=== PATIENT | male | born 1940 | race Two or more races ===

== ENCOUNTER 2017-06-09 15:02 | Inpatient (IN) | payer MEDICARE, OTHER ==
[~2017-06-09] VITALS: Ht 167.6 cm; Wt 87.6 kg
[~2017-06-09 15:02] MED LIST: ALBU2TAB PO; CARV-39 PO; FEBU40TA PO; METH4TAB6 PO; PRED50TA PO
[2017-06-09] MEDS ORDERED: PIPERACILLIN/TAZO/PMX 3.375GM 50 ML IVPB ONE (15:30)
[2017-06-09] MEDS ORDERED: PHARMACOKINETIC CONSULTATION MC ONE ×2 (15:30→20:00)
[2017-06-09] MEDS ORDERED: SODIUM CHLORIDE 0.9% 1,000ML IVBOLUS ONE (15:30)
[2017-06-09] MEDS ORDERED: VANCOMYCIN PER PHARMACY MC ONE (15:30)
[2017-06-09] MEDS ORDERED: ACETAMINOPHEN 500 MG TABLET PO ONE (15:30)
[2017-06-09] MEDS ORDERED: ACETAMINOPHEN 500 MG TABLET ONE (15:43)
[2017-06-09 15:55] LABS: BASOPHILS # (AUTO) 0.03 x10^3/uL (0-0.1); BASOPHILS % (AUTO) 1 % (0-1); EOSINOPHILS # (AUTO) 0.02 x10^3/uL (0-0.4); EOSINOPHILS % (AUTO) 0 % (1-7); LYMPHOCYTES # (AUTO) 0.44 x10^3/uL (1-3.4); LYMPHOCYTES % (AUTO) 6 % (22-44); MD NO; MEAN CORPUSCULAR HEMOGLOBIN 29.3 pg (27.5-34.5); MEAN CORPUSCULAR HGB CONC 32.5 g/dL (33.2-36.2); MEAN CORPUSCULAR VOLUME 90.2 fL (81-97); MEAN PLATELET VOLUME 7.9 fL (7.4-10.4); MONOCYTES # (AUTO) 0.65 x10^3/uL (0.2-0.8); MONOCYTES % (AUTO) 9 % (2-9); NEUTROPHILS # (AUTO) 5.76 x10^3/uL (1.8-6.8); NEUTROPHILS % (AUTO) 83 % (42-75); PLATELET COUNT 174 x10^3/uL (130-400); RED BLOOD COUNT 3.65 x10^6/uL (4.38-5.82); RED CELL DISTRIBUTION WIDTH 18.4 % (9.4-14.8)
[2017-06-09] MEDS ORDERED: METHYLPRED (15:58)
[2017-06-09] MEDS ORDERED: [UNRECOGNIZED DRUG - OTHER] (15:58)
[2017-06-09] MEDS ORDERED: ALLO300T PO (15:58)
[2017-06-09] MEDS ORDERED: LISI-170 PO (15:58)
[2017-06-09] MEDS ORDERED: ATOR20TA9 PO (15:58)
[2017-06-09] MEDS ORDERED: VANCOMYCIN 1,600 MG in SODIUM CHLORIDE 0.9% 250 ML IV ONE (16:00)
[2017-06-09 16:02] LABS: INTERNATIONAL NORMALIZED RATIO 1.14 (0.93-1.1); PROTHROMBIN TIME 11.8 Seconds (9.6-11.5)
[2017-06-09 16:04] LABS: ALANINE AMINOTRANSFERASE 25 U/L (12-78); ANION GAP 11 mmol/L (5-15); CALCIUM 7.9 mg/dL (8.5-10.1); CHLORIDE 113 mmol/L (98-107); CREATININE 2.54 mg/dL (0.7-1.3)
[2017-06-09 16:06] LABS: ALKALINE PHOSPHATASE 53 U/L (45-117); BILIRUBIN,TOTAL 0.8 mg/dL (0.2-1.0); TOTAL PROTEIN 6.1 g/dL (6.4-8.2)
[2017-06-09 17:32] LABS: MICROSCOPIC INDICATED
[2017-06-09 17:40] LABS: CULTURE INDICATED? NO
[2017-06-09] MEDS ORDERED: BISACODYL 10 MG SUPP PR PRN (18:00)
[2017-06-09] MEDS ORDERED: ONDANSETRON 2MG/ML, 2ML IVPush PRN (18:00)
[2017-06-09] MEDS ORDERED: GUAIFENESIN/DM 200-20MG, 10ML UDC PO PRN (18:00)
[2017-06-09] MEDS ORDERED: PHARMACY MAY ADJ FOR RENAL FX MC PRN (18:00)
[2017-06-09] MEDS ORDERED: ACETAMINOPHEN 325 MG TABLET PO PRN (18:00)
[2017-06-09] MEDS ORDERED: DEXTROSE 5% 1,000 ML IV SCH (18:00)
[2017-06-09] MEDS ORDERED: VANCOMYCIN PER PHARMACY MC PRN (18:00)
[2017-06-09] MEDS: ALBUTEROL/IPRATROPIUM 2.5MG/0.5MG, 3 ML NPPB SCH ×2 (19:30→21:46)
[2017-06-09] MEDS ORDERED: ALBUTEROL/IPRATROPIUM 2.5MG/0.5MG, 3 ML NPPB PRN (19:30)
[2017-06-09] MEDS ORDERED: PHARMACOKINETIC MONITORING MC PRN (20:00)
[2017-06-09 20:01] VITALS: BP 90/49
[2017-06-09] MEDS: methylPREDNISolone SOD SUCC 40 MG/ML IV SCH (20:20)
[2017-06-09] MEDS: FAMOTIDINE 20 MG TABLET PO SCH (20:21)
[2017-06-09] MEDS: HEPARIN 5,000 UNITS/ML, 1ML SQ SCH (20:21)
[2017-06-09] MEDS: ATORVASTATIN 20 MG TABLET PO SCH (20:22)
[2017-06-09] MEDS ORDERED: SODIUM CHLORIDE 0.9% 1,000 ML IV SCH (20:30)
[2017-06-09 20:49] LABS: ALANINE AMINOTRANSFERASE 36 U/L (12-78); ALBUMIN 2.5 g/dL (3.4-5.0); ANION GAP 11 mmol/L (5-15); CALCIUM 6.9 mg/dL (8.5-10.1); CHLORIDE 118 mmol/L (98-107); CREATININE 2.22 mg/dL (0.7-1.3)
[2017-06-09 20:51] LABS: ALKALINE PHOSPHATASE 43 U/L (45-117); BILIRUBIN,TOTAL 0.6 mg/dL (0.2-1.0); TOTAL PROTEIN 5.1 g/dL (6.4-8.2)
[2017-06-09] MEDS ORDERED: PIPERACILLIN/TAZO/PMX 3.375GM 50 ML IV SCH ×2 (21:30)
[2017-06-09] MEDS ORDERED: PIPERACILLIN/TAZO 3.375 GM in DEXTROSE 5% 50 ML IVPB ONE (21:30)
[2017-06-09 21:49] LABS: RAPID INFLUENZA A Negative (Negative); RAPID INFLUENZA B Negative (Negative)
[2017-06-10] MEDS: ALBUTEROL/IPRATROPIUM 2.5MG/0.5MG, 3 ML NPPB SCH ×5 (03:16→19:15)
[2017-06-10] MEDS ORDERED: PIPERACILLIN/TAZO 3.375 GM in DEXTROSE 5% 50 ML IV SCH (03:30)
[2017-06-10] MEDS: HEPARIN 5,000 UNITS/ML, 1ML SQ SCH ×3 (04:11→21:10)
[2017-06-10] MEDS: methylPREDNISolone SOD SUCC 40 MG/ML IV SCH ×3 (04:13→21:10)
[2017-06-10 04:18] VITALS: BP 96/55
[2017-06-10 04:21] LABS: BASOPHILS % (AUTO) 0 % (0-1); EOSINOPHILS % (AUTO) 0 % (1-7); LYMPHOCYTES # (AUTO) 0.33 x10^3/uL (1-3.4); LYMPHOCYTES % (AUTO) 5 % (22-44); MD NO; MEAN CORPUSCULAR HEMOGLOBIN 29.8 pg (27.5-34.5); MEAN CORPUSCULAR HGB CONC 32.6 g/dL (33.2-36.2); MEAN CORPUSCULAR VOLUME 91.3 fL (81-97); MONOCYTES # (AUTO) 0.27 x10^3/uL (0.2-0.8); MONOCYTES % (AUTO) 4 % (2-9); NEUTROPHILS # (AUTO) 6.56 x10^3/uL (1.8-6.8); NEUTROPHILS % (AUTO) 92 % (42-75); PLATELET COUNT 135 x10^3/uL (130-400); RED BLOOD COUNT 3.34 x10^6/uL (4.38-5.82); RED CELL DISTRIBUTION WIDTH 18.6 % (9.4-14.8)
[2017-06-10 04:32] LABS: ALBUMIN 2.5 g/dL (3.4-5.0); ANION GAP 11 mmol/L (5-15); CALCIUM 6.8 mg/dL (8.5-10.1); CHLORIDE 118 mmol/L (98-107)
[2017-06-10 04:35] LABS: ALANINE AMINOTRANSFERASE 41 U/L (12-78); ALKALINE PHOSPHATASE 42 U/L (45-117); BILIRUBIN,TOTAL 0.6 mg/dL (0.2-1.0); CREATININE 2.06 mg/dL (0.7-1.3); TOTAL PROTEIN 5.4 g/dL (6.4-8.2)
[2017-06-10] MEDS ORDERED: SODIUM CHLORIDE 0.45% 1,000 ML IV SCH (07:30)
[2017-06-10] MEDS ORDERED: MAGNESIUM SULFATE PMX 4GM/100M 100 ML IV ONE (07:30)
[2017-06-10] MEDS ORDERED: predniSONE 50MG TABLET PO SCH (08:00)
[2017-06-10] MEDS: DOXYCYCLINE 100MG TABLET PO SCH ×2 (12:14→21:11)
[2017-06-10] MEDS: CEFTRIAXONE PMX 1GM/50ML 50 ML IV SCH (12:19)
[2017-06-10 13:18] VITALS: BP 101/60
[2017-06-10 20:29] VITALS: BP 94/56
[2017-06-10] MEDS: FAMOTIDINE 20 MG TABLET PO SCH (21:11)
[2017-06-10] MEDS: ATORVASTATIN 20 MG TABLET PO SCH (21:11)
[2017-06-11 01:55] VITALS: BP 96/53
[2017-06-11] MEDS: methylPREDNISolone SOD SUCC 40 MG/ML IV SCH (04:38)
[2017-06-11] MEDS: HEPARIN 5,000 UNITS/ML, 1ML SQ SCH (04:39)
[2017-06-11 05:27] LABS: CHLORIDE 119 mmol/L (98-107)
[2017-06-11 05:31] LABS: ANION GAP 8 mmol/L (5-15); CALCIUM 7.2 mg/dL (8.5-10.1); CREATININE 2.01 mg/dL (0.7-1.3)
[2017-06-11] MEDS ORDERED: ALBUTEROL/IPRATROPIUM 2.5MG/0.5MG, 3 ML NPPB SCH ×2 (06:00→11:00)
[2017-06-11 06:30] VITALS: BP 104/55
[2017-06-11] MEDS: CEFTRIAXONE PMX 1GM/50ML 50 ML IV SCH (11:53)
[2017-06-11 12:05] VITALS: BP 124/64
[2017-06-11] MEDS ORDERED: METH4TAB2 PO (12:47)
[2017-06-11] MEDS ORDERED: AMOX1TAB61 PO (12:47)
[2017-06-11] MEDS ORDERED: VANCOMYCIN 1,600 MG in SODIUM CHLORIDE 0.9% 250 ML IV SCH (16:00)
== END 2017-06-11 18:58 | disposition home or self-care (01) | DRG 871 ==
LOC: ED 16:50 → EDIP 17:30 → CCU 19:38 → 3NE 06-10 13:11
PROVIDERS: ADMIT Hospitalist; ATTEND Hospitalist
DX: A41.9 Sepsis, unspecified organism (principal); N17.0 Acute kidney failure with tubular necrosis; J96.20 Acute and chronic respiratory failure, unspecified whether with hypoxia or hypercapnia; R65.21 Severe sepsis with septic shock; J18.9 Pneumonia, unspecified organism; I13.0 Hypertensive heart and chronic kidney disease with heart failure and stage 1 through stage 4 chronic kidney disease, or unspecified chronic kidney disease; J44.0 Chronic obstructive pulmonary disease with (acute) lower respiratory infection; E11.22 Type 2 diabetes mellitus with diabetic chronic kidney disease; R17 Unspecified jaundice; I50.32 Chronic diastolic (congestive) heart failure; J44.1 Chronic obstructive pulmonary disease with (acute) exacerbation; K22.4 Dyskinesia of esophagus; W18.30XA Fall on same level, unspecified, initial encounter; J32.9 Chronic sinusitis, unspecified; L21.9 Seborrheic dermatitis, unspecified; M10.9 Gout, unspecified; N18.9 Chronic kidney disease, unspecified; Z87.891 Personal history of nicotine dependence; Z99.81 Dependence on supplemental oxygen; Z79.899 Other long term (current) drug therapy; Z79.2 Long term (current) use of antibiotics; Z90.49 Acquired absence of other specified parts of digestive tract; Z98.49 Cataract extraction status, unspecified eye; Z84.1 Family history of disorders of kidney and ureter
CPT/HCPCS: 36415; 51702; 70450; 71045; 74220; 80048; 80053; 81001; 82533; 82803; 82962; 83605; 83735; 83880; 84145; 85025; 85610; 85730; 87040; 87081; 87400; 93005; 94640; 96361; 96365; 96366; 96368; J0696; J1644; J2543; J3370; J7620; J2920; J3475; J7030; J7050

== ENCOUNTER 2020-05-18 21:21 | Inpatient (IN) | payer MEDICARE, OTHER ==
[~2020-05-18] VITALS: Ht 167.6 cm; Wt 88.7 kg
[~2020-05-18 21:21] MED LIST changes: +ALLO300T PO; +AMOX1TAB61 PO; +ATOR20TA37 PO; +LISI-170 PO; +METH4TAB2 PO; +METHYLPRED; +[UNRECOGNIZED DRUG - OTHER]
--- NOTE | 2020-05-18 21:42 | NUR ---
PT BIBA FROM HOME FOR SUDDEN ONSET OF FAST HR OF 145 AND BP OF 190/120 PER PT REPORT. PT STATES HE TOOK 324MG OF ASPIRIN, EMS GAVE 1 TAB SL NITRO, AND 120ML NS IV ENROUTE. PT DENIES CURRENT CP OR SOB. HX COPD WITH BASELINE 3L NC. PT'S HR NOW DOWN TO 86.
[2020-05-18 21:53] LABS: BASOPHILS % (AUTO) 0 % (0-1); EOSINOPHILS % (AUTO) 0 % (1-7); LYMPHOCYTES % (AUTO) 4 % (22-44); MEAN CORPUSCULAR HEMOGLOBIN 32.2 pg (27.5-34.5); MEAN CORPUSCULAR HGB CONC 33.5 g/dL (33.2-36.2); MEAN PLATELET VOLUME 8.2 fL (7.4-10.4); MONOCYTES % (AUTO) 4 % (2-9); NEUTROPHILS % (AUTO) 92 % (42-75); PLATELET COUNT 99 x10^3/uL (130-400); RED BLOOD COUNT 4.14 x10^6/uL (4.38-5.82); RED CELL DISTRIBUTION WIDTH 15.8 % (9.4-14.8)
[2020-05-18] MEDS ORDERED: SODIUM CHLORIDE FLUSH 10ML SYR IVF ONE (22:00)
[2020-05-18 22:01] LABS: ALANINE AMINOTRANSFERASE 26 U/L (12-78); ANION GAP 8 mmol/L (5-15); CHLORIDE 112 mmol/L (98-107); CREATININE 2.42 mg/dL (0.7-1.3); T4 (THYROXINE) 6.6 mcg/dL (4.5-12.1)
[2020-05-18] MEDS ORDERED: METH4TAB6 PO (22:03)
[2020-05-18] MEDS ORDERED: CARV12.52 PO (22:03)
[2020-05-18 22:12] LABS: ALKALINE PHOSPHATASE 73 U/L (45-117); BILIRUBIN,TOTAL 0.5 mg/dL (0.2-1.0)
[2020-05-18 22:17] LABS: TROPONIN I 0.474 ng/mL (0.000-0.045)
[2020-05-18 22:19] LABS: MD SCAN
[2020-05-18] MEDS ORDERED: HEPARIN 5,000 UNITS/ML, 1ML IV ONE (22:30)
[2020-05-18] MEDS ORDERED: HEPARIN 25,000 UNITS/250ML PMX 250 ML IV PRN (22:30)
[2020-05-18] MEDS ORDERED: HEPARIN 5,000 UNITS/ML, 1ML IV PRN (22:30)
[2020-05-18] MEDS ORDERED: HEPARIN 25,000 UNITS/250ML PMX 250 ML ONE (22:45)
[2020-05-18] MEDS ORDERED: HEPARIN 5,000 UNITS/ML, 1ML ONE (22:45)
[2020-05-18] MEDS ORDERED: NITROGLYCERIN OINT 2%, 1GM TP ONE ×2 (23:00→23:18)
[2020-05-18] MEDS ORDERED: GLUCAGON 1 MG IM PRN (23:00)
[2020-05-18] MEDS ORDERED: ONDANSETRON 2MG/ML, 2ML IV PRN (23:00)
[2020-05-18] MEDS ORDERED: ACETAMINOPHEN 650 MG/20.3 ML UDC PO PRN (23:00)
[2020-05-18] MEDS ORDERED: DEXTROSE 4 GM TAB.CHEW PO PRN (23:00)
[2020-05-18] MEDS ORDERED: DEXTROSE 50%, 50ML SYRINGE IVPush PRN (23:00)
[2020-05-18] MEDS ORDERED: SODIUM CHLORIDE 0.9% 100 ML IV SCH (23:00)
--- NOTE | 2020-05-18 23:12 | NUR ---
HEPARIN ACS PROTOCOL INITIATED. REPORT GIVEN TO JORGE LUIS BIRD.
--- NOTE | 2020-05-18 23:15 | NUR ---
report received from Obey BIRD. I introduced myself to patient and inpatient admitting provider at bedside discussing plan inpatient hospitalization. heparin gtt started by Obey BIRD and Franklin BIRD with ordered heparin bolus. I educated patient on ordered nitro paste and will administer. call [place] in reach. BP remains elevated. all other vitals remain stable on baseline 3L via NC. safety maintained. will continue to monitor.
[2020-05-18] MEDS ORDERED: MAGNESIUM SULFATE/D5W 100 ML IVPB ONE (23:30)
--- NOTE | 2020-05-18 23:52 | NUR ---
2nd IV inserted due to incompatibility of some meds with heparin gtt and being admitted to inpatient unit. patient agreed to this. call [place] in reach. safety maintained. will continue to monitor.
[2020-05-19] VITALS (8 sets, daily range): BP systolic 142–196; BP diastolic 61–89
[2020-05-19] MEDS ORDERED: hydrALAzine 20 MG/ML, 1ML IV PRN
--- NOTE | 2020-05-19 00:08 | NUR ---
report given to Debo BIRD
[2020-05-19 01:07] LABS: CHOLESTEROL, TOTAL 182 mg/dL (140-239); TRIGLYCERIDES 69 mg/dL (50-200); VLDL CHOLESTEROL 14 mg/dL (0-25)
[2020-05-19 01:10] LABS: CHOL/HDL RATIO 3.6; HDL CHOL % 27 % (26-37); HDL CHOLESTEROL (DIRECT) 50 mg/dL (40-60); LDL CHOLESTEROL,CALCULATED 118 mg/dL (54-169); LDL/HDL RATIO 2.4 (0.5-3.0)
[2020-05-19] MEDS: ASPIRIN 325 MG TABLET EC PO SCH (05:24)
[2020-05-19 07:29] LABS: CREATININE,URINE RANDOM 66.8 mg/dL
[2020-05-19] MEDS: CARVEDILOL 25 MG TABLET PO SCH ×2 (08:12→20:11)
[2020-05-19] MEDS: INSULIN LISPRO 100 UNITS/ML, PEN SQ-INSULIN SCH ×4 (08:13→20:12)
[2020-05-19] MEDS: SODIUM CHLORIDE FLUSH 10ML SYR IVF SCH ×4 (08:14→20:12)
[2020-05-19] MEDS ORDERED: LISINOPRIL 20 MG TABLET PO SCH (09:00)
[2020-05-19 09:32] LABS: ANION GAP 5 mmol/L (5-15); CALCIUM 8.1 mg/dL (8.5-10.1); CHLORIDE 113 mmol/L (98-107); CREATININE 2.12 mg/dL (0.7-1.3)
[2020-05-19] MEDS ORDERED: ACETYLCYSTEINE 600 MG CAPSULE PO SCH ×2 (10:00→21:00)
[2020-05-19] MEDS: ACETYLCYSTEINE 600 MG CAPSULE PO SCH ×2 (10:42→23:22)
[2020-05-19] MEDS ORDERED: SODIUM BICARBONATE 8.4% 150 MEQ in SODIUM CHLORIDE 0.45% 1,000 ML IV SCH (12:00)
[2020-05-19] MEDS ORDERED: TICAGRELOR 90 MG TABLET ONE (13:36)
[2020-05-19] MEDS ORDERED: VERAPAMIL 2.5 MG/ML, 2ML ONE (13:36)
[2020-05-19] MEDS ORDERED: FENTANYL PF 100 MCG/2ML ONE (13:36)
[2020-05-19] MEDS ORDERED: BIVALIRUDIN 250 MG ONE (13:36)
[2020-05-19] MEDS ORDERED: MIDAZOLAM 1 MG/ML, 5ML ONE (13:36)
[2020-05-19] MEDS ORDERED: LIDOCAINE-MPF 1%, 5ML ONE (13:37)
[2020-05-19] MEDS ORDERED: HEPARIN 1,000 UNITS/ML, 10ML ONE (13:37)
[2020-05-19] MEDS ORDERED: ATORVASTATIN 20 MG TABLET PO SCH (21:00)
[2020-05-19] MEDS ORDERED: ATORVASTATIN 10 MG TABLET PO SCH (21:00)
[2020-05-19] MEDS: SODIUM CHLORIDE 0.9% 1,000 ML IV SCH (23:00)
[2020-05-20 00:27] VITALS: BP 153/77
[2020-05-20] MEDS: ASPIRIN 325 MG TABLET EC PO SCH (05:07)
[2020-05-20 05:22] LABS: BASOPHILS % (AUTO) 0 % (0-1); EOSINOPHILS % (AUTO) 6 % (1-7); LYMPHOCYTES % (AUTO) 10 % (22-44); MEAN CORPUSCULAR HEMOGLOBIN 32.6 pg (27.5-34.5); MEAN CORPUSCULAR HGB CONC 33.5 g/dL (33.2-36.2); MEAN PLATELET VOLUME 8.4 fL (7.4-10.4); MONOCYTES % (AUTO) 9 % (2-9); NEUTROPHILS % (AUTO) 76 % (42-75); PLATELET COUNT 71 x10^3/uL (130-400); RED BLOOD COUNT 3.39 x10^6/uL (4.38-5.82); RED CELL DISTRIBUTION WIDTH 16.4 % (9.4-14.8)
[2020-05-20 05:26] LABS: MD NO
[2020-05-20 05:32] LABS: ANION GAP 3 mmol/L (5-15); CALCIUM 8.1 mg/dL (8.5-10.1); CHLORIDE 111 mmol/L (98-107)
[2020-05-20 05:33] LABS: CREATININE 2.12 mg/dL (0.7-1.3)
[2020-05-20 07:00] VITALS: BP 164/72
[2020-05-20] MEDS: INSULIN LISPRO 100 UNITS/ML, PEN SQ-INSULIN SCH ×2 (07:00→11:00)
[2020-05-20] MEDS ORDERED: LISINOPRIL 20 MG TABLET PO SCH ×2 (09:00→09:30)
[2020-05-20] MEDS: SODIUM CHLORIDE FLUSH 10ML SYR IVF SCH ×2 (09:38)
[2020-05-20] MEDS: CARVEDILOL 25 MG TABLET PO SCH (09:40)
[2020-05-20] MEDS: SODIUM CHLORIDE 0.9% 1,000 ML IV SCH (09:42)
[2020-05-20] MEDS ORDERED: AMLODIPINE 5 MG TABLET ONE (09:44)
[2020-05-20] MEDS ORDERED: AMLODIPINE 5 MG TABLET PO SCH (10:00)
[2020-05-20] MEDS ORDERED: ASPI-1026 PO (11:02)
[2020-05-20] MEDS ORDERED: ATOR20TA37 PO (11:26)
[2020-05-20] MEDS ORDERED: AMLO-150 PO (11:29)
[2020-05-20] MEDS: ACETYLCYSTEINE 600 MG CAPSULE PO SCH (11:48)
[2020-05-21] MEDS ORDERED: LISINOPRIL 20 MG TABLET PO SCH (09:00)
== END 2020-05-20 12:53 | disposition home or self-care (01) | DRG 280 ==
LOC: ED 21:49 → EDIP 22:47 → 5SO 05-19 00:40 → DCLOUNGE 05-20 12:36
PROVIDERS: ADMIT Internal Medicine; ATTEND Internal Medicine
PROC: 4A023N7 Measurement of Cardiac Sampling and Pressure, Left Heart, Percutaneous Approach (ICD-10-PCS; principal; 2020-05-19)
PROC: B2111ZZ Fluoroscopy of Multiple Coronary Arteries using Low Osmolar Contrast (ICD-10-PCS; 2020-05-19)
PROC: B2151ZZ Fluoroscopy of Left Heart using Low Osmolar Contrast (ICD-10-PCS; 2020-05-19)
PROC: 4A033BC Measurement of Arterial Pressure, Coronary, Percutaneous Approach (ICD-10-PCS; 2020-05-19)
DX: I21.4 Non-ST elevation (NSTEMI) myocardial infarction (principal); I50.21 Acute systolic (congestive) heart failure; I13.0 Hypertensive heart and chronic kidney disease with heart failure and stage 1 through stage 4 chronic kidney disease, or unspecified chronic kidney disease; E87.2 Acidosis; N17.9 Acute kidney failure, unspecified; J96.11 Chronic respiratory failure with hypoxia; I48.0 Paroxysmal atrial fibrillation; E11.22 Type 2 diabetes mellitus with diabetic chronic kidney disease; I70.1 Atherosclerosis of renal artery; E11.65 Type 2 diabetes mellitus with hyperglycemia; E83.42 Hypomagnesemia; I16.0 Hypertensive urgency; N18.32 Chronic kidney disease, stage 3b; E78.5 Hyperlipidemia, unspecified; I25.10 Atherosclerotic heart disease of native coronary artery without angina pectoris; I25.5 Ischemic cardiomyopathy; J44.9 Chronic obstructive pulmonary disease, unspecified; M10.9 Gout, unspecified; I25.2 Old myocardial infarction; Z90.49 Acquired absence of other specified parts of digestive tract; Z87.891 Personal history of nicotine dependence; Z99.81 Dependence on supplemental oxygen; Z79.899 Other long term (current) drug therapy
CPT/HCPCS: 36415; 71045; 80048; 80053; 80061; 82570; 82962; 83036; 83735; 83880; 84100; 84300; 84436; 84443; 84484; 85025; 85520; 93005; 93458; 93571; 99156; 99157; 99291; C1769; C1894; C8929; G0378; J0583; J1644; J2250; J3010; Q9957; J0360; J1815; Q9967

== ENCOUNTER 2020-12-02 11:06 | Inpatient (IN) | payer MEDICARE, OTHER ==
[~2020-12-02] VITALS: Ht 167.6 cm; Wt 68.9 kg
[~2020-12-02 11:06] MED LIST changes: +AMLO-150 PO; +ASPI-1026 PO; +CARV12.52 PO
--- NOTE | 2020-12-02 12:08 | NUR ---
CONTACT WITH PT, 80 YR OLD MALE HERE WITH C/O "I HAVE COPD, SUNDAY I SAW DR OLIVER FOR MY HEART. TODAY I WAS SUPPOSE TO SEE DR PEDERSEN FOR MY COPD. ALL WEEK MY SATS HAVE DROPPED TO 50-60% WITH EXERTION. BY THE TIME I GET BACK TO BED, I NEED AIR" PT NORMALLY ON 3L NC 09/10. MONITORS ATTACHED TO PT SR PER MONITOR. 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 PT PROVIDED WITH WARM BLANKET UPDATED ON POC. PTS SOURAV AT BEDSIDE.
[2020-12-02 12:12] LABS: BASOPHILS % (AUTO) 1 % (0-1); EOSINOPHILS % (AUTO) 23 % (1-7); LYMPHOCYTES % (AUTO) 9 % (22-44); MEAN CORPUSCULAR HEMOGLOBIN 32.8 pg (27.5-34.5); MEAN CORPUSCULAR HGB CONC 33.5 g/dL (33.2-36.2); MEAN PLATELET VOLUME 7.5 fL (7.4-10.4); MONOCYTES % (AUTO) 8 % (2-9); NEUTROPHILS % (AUTO) 60 % (42-75); PLATELET COUNT 93 x10^3/uL (130-400); RED BLOOD COUNT 3.03 x10^6/uL (4.38-5.82); RED CELL DISTRIBUTION WIDTH 17.6 % (9.4-14.8)
[2020-12-02 12:20] LABS: ALANINE AMINOTRANSFERASE 20 U/L (12-78); ALBUMIN 3.4 g/dL (3.4-5.0); ANION GAP 7 mmol/L (5-15); CALCIUM 8.4 mg/dL (8.5-10.1); CHLORIDE 113 mmol/L (98-107); CREATININE 2.85 mg/dL (0.7-1.3)
[2020-12-02 12:24] LABS: ALKALINE PHOSPHATASE 73 U/L (45-117); BILIRUBIN,TOTAL 0.5 mg/dL (0.2-1.0); TOTAL PROTEIN 6.8 g/dL (6.4-8.2); TROPONIN I < 0.015 ng/mL (0.000-0.045)
--- NOTE | 2020-12-02 13:23 | NUR ---
Break RN note: Pt resting in bed with eyes closed, resp even and unlabored, NADN. Awaiting recheck by ERP.
--- NOTE | 2020-12-02 13:24 | NUR ---
Break RN note: Dr. Luis at bedside to evaluate pt.
[2020-12-02] MEDS ORDERED: ALBUTEROL/IPRATROPIUM 2.5MG/0.5MG, 3 ML NEB ONE (13:30)
[2020-12-02] MEDS ORDERED: ALBUTEROL/IPRATROPIUM 2.5MG/0.5MG, 3 ML ONE (13:39)
--- NOTE | 2020-12-02 13:45 | NUR ---
Break RN note: Darling initiated per MAY.
--- NOTE | 2020-12-02 14:00 | NUR ---
RESP TX COMPLETED. PT ASKING FOR WATER, PROVIDED TO PT. PT SR PER MONITOR, AUTO BP AND PULSE OX IN PLACE. NO OTHER NEEDS EXPRESSED AT THIS TIME.
[2020-12-02] MEDS ORDERED: FUROSEMIDE 20 MG/2 ML IV ONE (14:30)
[2020-12-02] MEDS ORDERED: ALBUTEROL/IPRATROPIUM 2.5MG/0.5MG, 3 ML HHN SCH (15:30)
[2020-12-02] MEDS ORDERED: POLYETHYLENE GLYCOL 17 GM PACKET PO PRN (15:30)
[2020-12-02] MEDS ORDERED: LIDODERM 5% PATCH TD PRN (15:30)
[2020-12-02] MEDS ORDERED: ACETAMINOPHEN 325 MG TABLET PO PRN (15:30)
[2020-12-02] MEDS ORDERED: MELATONIN 5 MG TABLET PO PRN (15:30)
[2020-12-02] MEDS ORDERED: HEPARIN 5,000 UNITS/ML, 1ML SQ SCH (15:30)
[2020-12-02] MEDS ORDERED: GUAIFENESIN 200 MG TABLET PO SCH (16:00)
[2020-12-02] MEDS ORDERED: ALBUTEROL HFA 90 MCG/SPRAY INH PRN (16:30)
--- NOTE | 2020-12-02 18:14 | NUR ---
PT PLACED ON HOSPITAL BED, PROVIDED WITH URINAL AND SOCKS.
[2020-12-02] MEDS ORDERED: HEPARIN 5,000 UNITS/ML, 1ML ONE (18:19)
[2020-12-02] MEDS ORDERED: FUROSEMIDE 20 MG/2 ML ONE (18:20)
[2020-12-02] MEDS ORDERED: DOXYCYCLINE 100MG TABLET ONE (18:20)
[2020-12-02] MEDS: DOXYCYCLINE 100MG TABLET PO SCH (18:26)
--- NOTE | 2020-12-02 18:58 | NUR ---
PT PROVIDED WITH SNACKS, SPRITE. DESATS QUICKLY OFF OF OXYGEN. REPORT TO JAMAL BIRD.
--- NOTE | 2020-12-02 19:04 | NUR ---
REPORT FROM LAUREN BIRDBISQUE KILN DRAWER OF CARE COMPLETED
[2020-12-02 20:15] VITALS: BP 131/61
[2020-12-02 23:13] LABS: MICROSCOPIC AUTO
[2020-12-02] MEDS: GUAIFENESIN 100 MG/5 ML, 10ML UDC PO SCH (23:18)
[2020-12-02 23:25] VITALS: BP 115/62
[2020-12-03 01:30] VITALS: BP 149/70
[2020-12-03] MEDS ORDERED: HEPARIN 5,000 UNITS/ML, 1ML SQ SCH (02:00)
[2020-12-03] MEDS: DOXYCYCLINE 100MG TABLET PO SCH ×2 (05:38→16:59)
[2020-12-03] MEDS: GUAIFENESIN 100 MG/5 ML, 10ML UDC PO SCH ×4 (05:38→20:39)
[2020-12-03 07:41] LABS: ANION GAP 6 mmol/L (5-15); CALCIUM 8.6 mg/dL (8.5-10.1); CHLORIDE 112 mmol/L (98-107); CREATININE 2.95 mg/dL (0.7-1.3)
[2020-12-03 07:58] VITALS: BP 125/64
[2020-12-03] MEDS: SENNA/DOCUSATE TABLET PO SCH (08:26)
[2020-12-03 09:18] LABS: BASOPHILS % (AUTO) 0 % (0-1); EOSINOPHILS % (AUTO) 0 % (1-7); LYMPHOCYTES % (AUTO) 7 % (22-44); MEAN CORPUSCULAR HEMOGLOBIN 32.5 pg (27.5-34.5); MEAN CORPUSCULAR HGB CONC 33.3 g/dL (33.2-36.2); MEAN PLATELET VOLUME 7.2 fL (7.4-10.4); MONOCYTES % (AUTO) 3 % (2-9); NEUTROPHILS % (AUTO) 90 % (42-75); PLATELET COUNT 96 x10^3/uL (130-400); RED CELL DISTRIBUTION WIDTH 17.6 % (9.4-14.8)
[2020-12-03 09:42] LABS: ANISOCYTOSIS 1+; OVALOCYTES 1+; TEAR DROPS 1+
[2020-12-03 09:43] LABS: <PLATELET ESTIMATE> DECREASED; <PLT MORPHOLOGY> NORMAL PLT MORPH; POLYCHROMASIA 1+
[2020-12-03 12:55] VITALS: BP 142/72
[2020-12-03 13:44] LABS: ANION GAP 4 mmol/L (5-15); CALCIUM 8.5 mg/dL (8.5-10.1); CHLORIDE 111 mmol/L (98-107); CREATININE 2.84 mg/dL (0.7-1.3)
[2020-12-03 19:10] VITALS: BP 136/64
[2020-12-03 20:57] LABS: OCCULT BLOOD NEGATIVE (NEGATIVE)
[2020-12-04 00:24] VITALS: BP 132/63
[2020-12-04] MEDS: GUAIFENESIN 100 MG/5 ML, 10ML UDC PO SCH ×4 (05:39→21:22)
[2020-12-04] MEDS: DOXYCYCLINE 100MG TABLET PO SCH ×2 (05:39→16:32)
[2020-12-04 06:01] LABS: BASOPHILS % (AUTO) 0 % (0-1); EOSINOPHILS % (AUTO) 0 % (1-7); LYMPHOCYTES % (AUTO) 6 % (22-44); MEAN CORPUSCULAR HEMOGLOBIN 32.7 pg (27.5-34.5); MEAN CORPUSCULAR HGB CONC 33.3 g/dL (33.2-36.2); MEAN PLATELET VOLUME 7.7 fL (7.4-10.4); MONOCYTES % (AUTO) 6 % (2-9); NEUTROPHILS % (AUTO) 88 % (42-75); PLATELET COUNT 110 x10^3/uL (130-400); RED BLOOD COUNT 2.98 x10^6/uL (4.38-5.82); RED CELL DISTRIBUTION WIDTH 18.2 % (9.4-14.8)
[2020-12-04 06:12] LABS: ANION GAP 8 mmol/L (5-15); CALCIUM 8.4 mg/dL (8.5-10.1); CHLORIDE 115 mmol/L (98-107); CREATININE 3.13 mg/dL (0.7-1.3)
[2020-12-04 08:26] VITALS: BP 143/70
[2020-12-04] MEDS: SENNA/DOCUSATE TABLET PO SCH (08:29)
[2020-12-04] MEDS ORDERED: FUROSEMIDE 40 MG/4 ML IV SCH ×2 (10:00→12:00)
[2020-12-04 13:27] VITALS: BP 127/76
[2020-12-04 15:42] LABS: ANION GAP 3 mmol/L (5-15); CALCIUM 8.5 mg/dL (8.5-10.1); CHLORIDE 113 mmol/L (98-107); CREATININE 2.89 mg/dL (0.7-1.3)
[2020-12-04] MEDS: FUROSEMIDE 20 MG/2 ML IV SCH (17:52)
[2020-12-04 19:47] VITALS: BP 126/66
[2020-12-05 00:37] VITALS: BP 131/71
[2020-12-05 05:02] LABS: ANION GAP 5 mmol/L (5-15); BASOPHILS % (AUTO) 0 % (0-1); CALCIUM 8.2 mg/dL (8.5-10.1); CHLORIDE 112 mmol/L (98-107); CREATININE 2.96 mg/dL (0.7-1.3); EOSINOPHILS % (AUTO) 8 % (1-7); LYMPHOCYTES % (AUTO) 10 % (22-44); MEAN CORPUSCULAR HEMOGLOBIN 33.1 pg (27.5-34.5); MEAN CORPUSCULAR HGB CONC 33.8 g/dL (33.2-36.2); MEAN PLATELET VOLUME 7.7 fL (7.4-10.4); MONOCYTES % (AUTO) 8 % (2-9); NEUTROPHILS % (AUTO) 74 % (42-75); PLATELET COUNT 97 x10^3/uL (130-400); RED BLOOD COUNT 2.92 x10^6/uL (4.38-5.82); RED CELL DISTRIBUTION WIDTH 18.2 % (9.4-14.8)
[2020-12-05] MEDS: GUAIFENESIN 100 MG/5 ML, 10ML UDC PO SCH ×4 (05:36→22:03)
[2020-12-05] MEDS: DOXYCYCLINE 100MG TABLET PO SCH ×2 (05:36→17:26)
[2020-12-05 08:15] VITALS: BP 147/79
[2020-12-05] MEDS ORDERED: FUROSEMIDE 40 MG/4 ML IV SCH (09:00)
[2020-12-05] MEDS: HEPARIN 5,000 UNITS/ML, 1ML SQ SCH ×2 (09:07→17:26)
[2020-12-05] MEDS: FUROSEMIDE 20 MG/2 ML IV SCH (09:07)
[2020-12-05] MEDS: SENNA/DOCUSATE TABLET PO SCH (09:07)
[2020-12-05 15:15] VITALS: BP 149/73
[2020-12-05] MEDS: CARVEDILOL 3.125 MG TABLET PO SCH (17:30)
[2020-12-05] MEDS ORDERED: FUROSEMIDE 100 MG/10 ML IV ONE (18:00)
[2020-12-05 21:04] VITALS: BP 136/69
[2020-12-06] MEDS: HEPARIN 5,000 UNITS/ML, 1ML SQ SCH ×2 (01:13→08:30)
[2020-12-06 01:14] VITALS: BP 132/67
[2020-12-06] MEDS: DOXYCYCLINE 100MG TABLET PO SCH (06:24)
[2020-12-06] MEDS: CARVEDILOL 3.125 MG TABLET PO SCH (06:24)
[2020-12-06] MEDS: GUAIFENESIN 100 MG/5 ML, 10ML UDC PO SCH ×2 (06:24→10:21)
[2020-12-06 06:53] LABS: BASOPHILS % (AUTO) 1 % (0-1); EOSINOPHILS % (AUTO) 16 % (1-7); LYMPHOCYTES % (AUTO) 13 % (22-44); MEAN CORPUSCULAR HEMOGLOBIN 32.4 pg (27.5-34.5); MEAN CORPUSCULAR HGB CONC 33.6 g/dL (33.2-36.2); MEAN PLATELET VOLUME 7.9 fL (7.4-10.4); MONOCYTES % (AUTO) 10 % (2-9); NEUTROPHILS % (AUTO) 61 % (42-75); PLATELET COUNT 92 x10^3/uL (130-400); RED BLOOD COUNT 3.12 x10^6/uL (4.38-5.82)
[2020-12-06 07:04] LABS: CHLORIDE 111 mmol/L (98-107)
[2020-12-06 07:19] LABS: % IRON SATURATION 22 % (20-55); ANION GAP 4 mmol/L (5-15); CALCIUM 8.8 mg/dL (8.5-10.1); CREATININE 2.38 mg/dL (0.7-1.3); IRON LEVEL 57 mcg/dL (65-175); TOTAL IRON BINDING CAPACITY 263 mcg/dL (250-450)
[2020-12-06 07:28] LABS: OCCULT BLOOD NEGATIVE (NEGATIVE)
[2020-12-06] MEDS: SENNA/DOCUSATE TABLET PO SCH (08:58)
[2020-12-06] MEDS ORDERED: FUROSEMIDE 40 MG TABLET PO SCH (09:00)
[2020-12-06] MEDS ORDERED: BISACODYL 10 MG SUPP PR SCH (09:00)
[2020-12-06 09:06] VITALS: BP 127/65
[2020-12-06] MEDS ORDERED: SENN-211 PO (09:27)
[2020-12-06] MEDS ORDERED: FURO40TA6 PO (09:27)
== END 2020-12-06 11:33 | disposition home or self-care (01) | DRG 291 ==
LOC: SUATTDRO 15:11 → ED 16:53 → EDIP 17:00 → 3N 22:01
PROVIDERS: ADMIT Family Medicine; ATTEND Internal Medicine
DX: I13.0 Hypertensive heart and chronic kidney disease with heart failure and stage 1 through stage 4 chronic kidney disease, or unspecified chronic kidney disease (principal); I50.23 Acute on chronic systolic (congestive) heart failure; J96.21 Acute and chronic respiratory failure with hypoxia; N17.9 Acute kidney failure, unspecified; N18.4 Chronic kidney disease, stage 4 (severe); Z66 Do not resuscitate; Z99.81 Dependence on supplemental oxygen; J44.9 Chronic obstructive pulmonary disease, unspecified; Z20.822 Contact with and (suspected) exposure to COVID-19; D53.9 Nutritional anemia, unspecified; D69.6 Thrombocytopenia, unspecified; E78.5 Hyperlipidemia, unspecified; I25.10 Atherosclerotic heart disease of native coronary artery without angina pectoris; I25.2 Old myocardial infarction; I48.91 Unspecified atrial fibrillation; I71.4 Abdominal aortic aneurysm, without rupture; M10.9 Gout, unspecified
CPT/HCPCS: 36415; 71045; 76705; 76770; 80048; 80053; 80074; 81001; 82272; 82607; 82728; 83540; 83550; 83605; 83880; 84443; 84484; 85025; 85379; 87040; 87806; 93005; 93306; 93356; 96374; 99285; G0378; J1644; J1940; U0005; G0475; J7512; U0003